=== PATIENT | female | born 1965 | race American Indian/Alaskan Native ===

== ENCOUNTER 2017-05-09 10:05 | Outpatient (CLI) | payer BC ==
--- NOTE | 2017-05-10 10:56 | Mammography Report ---
Bilateral digital screening mammogram with CAD. Prior study is dated November 28, 2014. Findings: There is a new area of parenchymal asymmetry in the upper-outer quadrant of the right breast and. On the MLO projection of the left breast, there is a vague area of parenchymal asymmetry seen superiorly. No architectural distortion or suspicious calcifications. Impression: Bilateral asymmetries needing further evaluation. BI-RADS code: 0. Recommendation: Spot compression images, 90 degree views, and ultrasound if needed.
== END 2017-05-09 10:06 | disposition home or self-care (01) ==
LOC: SPVWC 10:05
PROVIDERS: ATTEND Obstetrics & Gynecology
DX: Z12.31 Encounter for screening mammogram for malignant neoplasm of breast (principal)
CPT/HCPCS: 77067; G0202

== ENCOUNTER 2017-05-17 10:36 | Outpatient (CLI) | payer BC ==
--- NOTE | 2017-05-17 11:43 | Mammography Report ---
BILATERAL DIGITAL DIAGNOSTIC MAMMOGRAM and RIGHT BREAST ULTRASOUND: 05/17/17 10:36:00 CLINICAL: Recalled for bilateral asymmetries. COMPARISON:05/09/17 screening FINDINGS: True lateral and bilateral spot compression views were performed. Satisfactory effacement of bilateral asymmetries. Ultrasound of the upper outer right breast was performed and demonstrated a single benign cyst at 9 o'clock 6 cm from the nipple measuring 5 x 3 x 3 mm. No solid mass or shadowing. IMPRESSION: A benign 5 mm right breast cyst and otherwise negative exams. BI-RADS CATEGORY: 2 - - Benign RECOMMENDATION: Routine mammographic screening in one year. ACR BI-RADS MAMMOGRAPHIC CODES: 0 = Needs additional imaging evaluation; 1 = Negative; 2 = Benign; 3 = Probably benign; 4 = Suspicious; 5 = Malignant; 6 = Known biopsy-proven malignancy COMMENT: 1. Dense breast tissue, i.e., adenosis, fibrocystic changes, etc., may obscure an underlying neoplasm. 2. Approximately 10% of cancers are not detected with mammography. 3. A negative mammography report should not delay biopsy if a clinically suspicious mass is present. COMMENT: Patient follow-up letters are generated via our [employer] application.
== END 2017-05-17 10:37 | disposition home or self-care (01) ==
LOC: SPVWC 10:36
PROVIDERS: ATTEND Obstetrics & Gynecology
DX: N60.01 Solitary cyst of right breast (principal)
CPT/HCPCS: 76642; G0204; 77066

== ENCOUNTER 2018-05-15 09:17 | Outpatient (CLI) | payer BC ==
--- NOTE | 2018-05-16 09:56 | Mammography Report ---
Bilateral mammogram: Compared to 05/17/17, 05/09/17 and 11/28/14. CAD study utilized. Findings: Predominance adipose tissue bilaterally. Focal new asymmetry posterior mid left breast seen on CC view. Benign calcifications. Normal axilla Impression: Next Focal new asymmetry left breast. Recommend spot compression and if necessary sonographic examination. BI-RADS CATEGORY: 0 = Needs additional imaging evaluation ACR BI-RADS MAMMOGRAPHIC CODES: 0 = Needs additional imaging evaluation; 1 = Negative; 2 = Benign; 3 = Probably benign; 4 = Suspicious; 5 = Malignant; 6 = Known biopsy-proven malignancy COMMENT: 1. Dense breast tissue, i.e., adenosis, fibrocystic changes, etc., may obscure an underlying neoplasm. 2. Approximately 10% of cancers are not detected with mammography. 3. A negative mammography report should not delay biopsy if a clinically suspicious mass is present. COMMENT: Patient follow-up letters are generated in [employer].
== END 2018-05-15 09:18 | disposition home or self-care (01) ==
LOC: SPVWC 09:17
PROVIDERS: ATTEND Obstetrics & Gynecology
DX: Z12.31 Encounter for screening mammogram for malignant neoplasm of breast (principal)
CPT/HCPCS: 77067